=== PATIENT | female | born 1975 | race Caucasian/White ===

== ENCOUNTER → 2018-01-21 | Outpatient (CLI) | payer BC ==
--- NOTE | 2018-01-25 13:25 | PCVCIMAG ---
APPROVED REPORT Study performed: 01/21/2018 15:32:01 EXAM: Comprehensive 2D, Doppler, and color-flow Echocardiogram Patient Location: Echo lab Status: routine BSA: 1.62 HR: 56 bpmBP: 106/72 mmHg Rhythm: NSR Other Information Study Quality: Good Indications Murmur Palpitations Chest Pain S/P VSD Repair (1982) 2D Dimensions LVEF(%): 60.00 (>50%) IVSd: 9.19 (7-11mm)LVOT Diam: 20.00 (18-24mm) LVDd: 44.61 mm PWd: 8.78 (7-11mm)Ascending Ao: 30.11 (22-36mm) LVDs: 32.14 (25-40mm) Left Atrium: 34.31 (27-40mm) Aortic Root: 31.16 mm LV Single Plane 4CH: 53.71 % LV Single Plane 2CH: 67.78 %Dodson's LVEF: 60.74 % Biplane EF: 60.6 % Volumes Left Atrial Volume (Systole) Single Plane 4CH: 27.07 mLSingle Plane 2CH: 23.03 mL LA ESV Index: 16.00 mL/m2 Aortic Valve AoV Peak Torrey.: 1.79 m/s AO Peak Gr.: 12.88 mmHgLVOT Max P.21 mmHg LVOT Max V: 1.42 m/s MONICA Vmax: 2.55 cm2 Mitral Valve E/A Ratio: 1.6 MV Decel. Time: 236.96 ms MV E Max Torrey.: 0.90 m/s MV A Torrey.: 0.58 m/s IVRT: 79.58 ms TDI E/Lateral E': 6.43E/Medial E': 11.25 Medial E' Torrey.: 0.08 m/s Lateral E' Torrey.: 0.14 m/s Pulmonary Valve PV Peak Torrey.: 1.44 m/sPV Peak Gr.: 8.30 mmHg NV End Vmax: 0.92 m/s Pulmonary Vein P Vein S: 0.62 m/sP Vein A: 0.27 m/s P Vein D: 0.75 m/sP Vein A Dur.: 100.3 msec P Vein S/D Ratio: 0.83 Tricuspid Valve TR Peak Torrey.: 2.44 m/sRAP Estimate: 7.00 mmHg TR Peak Gr.: 23.84 mmHg PA Pressure: 31.00 mmHg Left Ventricle The left ventricle is normal size. There is normal LV segmental wall motion. There is normal left ventricular wall thickness. S/P Vestricular septal defect repair 1981. Possible small VSD seen in limited views. Left ventricular systolic function is normal. The left ventricular ejection fraction is within the normal range. LVEF is 60-65%. The left ventricular diastolic function is normal. Right Ventricle The right ventricle is normal size. The right ventricular systolic function is normal. Atria The left atrium size is normal. The right atrium size is normal. Aortic Valve The aortic valve is normal in structure. No aortic regurgitation is present. There is no aortic valvular stenosis. Mitral Valve The mitral valve is normal in structure. There is no mitral valve regurgitation noted. No evidence of mitral valve stenosis. Tricuspid Valve The tricuspid valve is normal in structure. Mild tricuspid regurgitation. Pulmonary artery pressure is 31 mmHg. Pulmonic Valve The pulmonary valve is normal in structure. Moderate pulmonic regurgitation. Great Vessels The aortic root is normal in size. IVC is normal in size and collapses >50% with inspiration. Pericardium There is no pericardial effusion. <Conclusion> The left ventricle is normal size. LVEF is 60-65%. The right ventricle is normal size. The left atrium size is normal. The aortic valve is normal in structure. There is no aortic valvular stenosis. There is no mitral valve regurgitation noted. Mild tricuspid regurgitation. Pulmonary artery pressure is 31 mmHg. The aortic root is normal in size. There is no pericardial effusion.
--- NOTE | 2018-01-25 17:22 | PCVCIMAG ---
APPROVED REPORT Patient Location: Echo lab- [facility] Room #: 1 Stress Nurse: Sharon Pierre RN INDICATIONS: Chest pain, Palpitations The patient exercised according to the MARCO protocol for 12:30 mins; achieving a work level of 15.4 METS. The resting heart rate of 70 bpm zackery to a maximum heart rate of 176 bpm. This value represents 97 % of the maximal, age-predicted heart rate. The resting blood pressure of 106/72 mmHg, zackery to a maximum blood pressure of 156/72 mmHg. The exercise test was stopped due to fatigue and dyspnea . Conclusion #1 patient stopped secondary to fatigue and shortness of breath no production of chest pain or angina #2 no diagnostic EKG changes associated with ischemia no significant ectopy #3 excellent exercise tolerance and appropriate hemodynamic response
== END | disposition home or self-care (01) ==
LOC: PCVCIMAG 16:23
PROVIDERS: ATTEND Internal Medicine Cardiovascular Disease
DX: I07.1 Rheumatic tricuspid insufficiency (principal); R00.2 Palpitations; R01.1 Cardiac murmur, unspecified; I73.00 Raynaud's syndrome without gangrene
CPT/HCPCS: 93017; 93306